=== PATIENT | female | born 2000 | race Two or more races ===

== ENCOUNTER 2024-05-10 16:53 | Emergency (ER) | payer MEDICAID, SELFPAY ==
[2024-05-10 17:38] VITALS: BP 135/81; PULSE 91; RESP 19; TEMP 36.7; O2SAT 99; BMI 40.3
--- NOTE | 2024-05-10 17:48 | XR_ITS ---
Examination: CT brain head without contrast. 2-D sagittal coronal reconstructions Date and time of exam:May 10, 2024 1754 hrs. Indications: Head pain with difficulty swallowing onset today CTDI: vol (mGy):79.5 DLP: (mGycm):1459 Technique: Multiple CT axial sections of the brain have been obtained, 5 mm slice thickness. Contrast has not been administered. 2-D sagittal, coronal reconstructions have been obtained Low dose protocols were performed. One or more of the following dose reduction techniques were used; automated exposure control, adjustment of the mA and/or KV according to patient size, use of iterative reconstruction technique. Findings: No significant ventricular enlargement. Intra-axial or extra-axial hemorrhage density is not seen. No mass effect or midline shift Basal cisterns are not remarkable. Fourth ventricle is midline. Cranial vault intact. Impression: Negative for acute hemorrhage, mass effect or midline shift Advise clinical correlation and follow-up accordingly
--- NOTE | 2024-05-10 17:48 | PD.EDRME ---
Rapid Medical Screening Exam RME Arrival date/time: 05/10/24 16:53 24-year-old female presents emergency department with complaints of headache, nausea that began yesterday. I have greeted and performed a focused initial assessment of this patient. Initial appropriate labs ordered at this time. A comprehensive ED assessment and evaluation of the patient and analysis of all test and completion of medical decision making process will be conducted by additional ED provider. Chief Complaint: Headache Time Seen by Provider: 05/10/24 17:48 Vital signs: Vital Signs Temperature 98.1 F 05/10/24 17:38 Pulse Rate 91 05/10/24 17:38 Respiratory Rate 19 05/10/24 17:38 Blood Pressure 135/81 H 05/10/24 17:38 Pulse Oximetry (%) 99 05/10/24 17:38 Oxygen Delivery Method Room Air 05/10/24 17:38
[2024-05-10] MEDS: IBUPROFEN TAB 400 MG TABLET 800 MG PO (18:25)
[2024-05-10 18:40] LABS: Basophils # (Auto) 0.1 Thou/mm3 (0.0-0.2); Basophils % (Auto) 1 % (0-2.5); Eosinophils # (Auto) 0.2 Thou/mm3 (0.0-0.5); Eosinophils % (Auto) 3 % (0-10); Hematocrit 39.8 % (36.0-46.0); Hemoglobin 13.8 g/dL (12.0-16.0); Immature Granulocytes % (Auto) 0 % (0-0); Immature Granulocytes Auto 0.02 Thou/mm3 (0.00-0.00); Lymphocytes # (Auto) 2.5 Thou/mm3 (1.0-4.8); Lymphocytes % (Auto) 30 % (10-50); Mean Corpuscular HGB Conc 34.7 g/dl (31.0-37.0); Mean Corpuscular Hemoglobin 29.7 pg (25.0-35.0); Mean Corpuscular Volume 86 fL (80-100); Monocytes # (Auto) 0.6 Thou/mm3 (0.0-0.8); Monocytes % (Auto) 7 % (0-12); Neutrophils % (Auto) 60 % (37-80); Nucleated Red Blood Cell % 0 /100 WBC (0); Platelet Count 369 Thou/mm3 (140-440); RDW Standard Deviation 38.8 fL (36.4-46.3); Red Blood Count 4.64 Miln/mm3 (4.00-5.20); White Blood Count 8.3 Thou/mm3 (3.6-11.0)
[2024-05-10 18:41] LABS: HCG Qualitative,Urine Negative
[2024-05-10 18:45] LABS: Alanine Aminotransferase 36 U/L (10-49); Albumin, Serum 4.5 gm/dL (3.5-5.0); Albumin/Globulin Ratio 1.5 (1.2-2.2); Alkaline Phosphatase 88 U/L (46-116); Anion Gap 5 (7-16); Aspartate Amino Transferase 17 U/L (0-34); BUN/Creatinine Ratio 10 Ratio (12-20); Bilirubin,Total 1.9 mg/dL (0.3-1.2); Blood Urea Nitrogen 8 mg/dL (9-23); Calcium 9.7 mg/dL (8.3-10.6); Calcium (Corrected) 9.7 mg/dL (8.5-10.1); Carbon Dioxide 25.9 mMol/L (20.0-31.0); Chloride 106 mMol/L (98-107); Creatinine (Component) 0.8 mg/dL (0.6-1.3); Estimated Creatinine Clearance 139.7 mL/min (>60); Globulin 3.1 gm/dL (2.3-3.5); Glucose 99 mg/dL (74-106); Osmolality,Calculated 272 (275-295); Potassium 3.6 mMol/L (3.4-5.1); Sodium 137 mMol/L (136-145); Total Protein 7.6 gm/dL (5.7-8.2); eGFR > 60 See Note
[2024-05-10 22:15] VITALS: BP 138/89; PULSE 61; RESP 18; TEMP 36.7; O2SAT 99
--- NOTE | 2024-05-10 22:45 | PD.EDHA ---
ED Headache RME/HPI General Chief Complaint: Headache Stated Complaint: HEAD AND LEFT ARM PAIN/CRAMPING W/DIFFICULT SWALLO Time Seen by Provider: 05/10/24 17:48 Arrival date/time: 05/10/24 16:53 This is a 24-year-old female with complaints of headache, left arm pain and cramping and feels like she sometimes has difficulty swallowing. Patient denies any throat swelling. Patient denies feeling that there is something stuck in her throat. Patient has a history of anxiety and depression. Patient reports that she lives alone and has been having more anxiety lately. Patient states she was placed on a medication called Latuda and she does not feel like it is helping her. Patient denies any SI HI. RME / HPI RME / HPI Narrative: 05/10/24 16:53 24-year-old female presents emergency department with complaints of headache, nausea that began yesterday. I have greeted and performed a focused initial assessment of this patient. Initial appropriate labs ordered at this time. A comprehensive ED assessment and evaluation of the patient and analysis of all test and completion of medical decision making process will be conducted by additional ED provider. Related Data Previous Rx's ?Medication ?Instructions ?Recorded IBU 800 mg tablet (ibuprofen) 800 mg PO Q6H PRN pain #30 tabs 03/30/24 baclofen 10 mg tablet 10 mg PO QDAY #20 tabs 03/30/24 Allergies Allergy/AdvReac Type Severity Reaction Status Date / Time No Known Allergies Allergy Verified 05/10/24 16:55 Review of Systems Review of Systems Systems Reviewed: All systems reviewed, normal except as documented Past Medical History Past Medical History Comments PMH COMMENT: anxiety and depressiom ED Exam General General appearance: Present alert and in no apparent distress Head Head exam: Present atraumatic Eye Eye exam: Present normal appearance, PERRL and EOMI ENT ENT exam: Present normal exam, normal oropharynx and mucous membranes moist Neck Neck exam: Present normal inspection, full ROM and trachea midline Chest Chest inspection: Present normal inspection and symmetric chest wall rise Respiratory Respiratory exam: Present normal lung sounds bilaterally Cardiovascular Cardiovascular exam: Present regular rate, normal rhythm and normal heart sounds Abdominal Exam Abdominal exam: Present soft Extremities Exam Extremities exam: Present normal inspection and full ROM Back Exam Back exam: Present normal inspection and full ROM Neurological Exam Neurological exam: Present alert and oriented X3 Psychiatric Psychiatric exam: Present normal affect and normal mood Skin Skin exam: Present warm, dry, intact and normal color Course Quality Measures none Orders Category Date Time Status CT head/brain wo con Stat Exams 05/10/24 17:48 Completed CBC Stat Lab 05/10/24 18:07 Completed CMP [Comprehensive Metabolic Panel] Stat Lab 05/10/24 18:07 Completed HCG Qualitative,Urine Stat Lab 05/10/24 18:22 Completed Acetaminophen Tab [Tylenol ES Tab] Med 05/10/24 22:46 Discontinued 1,000 mg PO X1 ONE Ibuprofen Tab [Motrin Tab] Med 05/10/24 17:48 Discontinued 800 mg PO X1 ONE Vital Signs Vital signs: Vital Signs Temperature 98.1 F 05/10/24 17:38 Pulse Rate 91 05/10/24 17:38 Respiratory Rate 19 05/10/24 17:38 Blood Pressure 135/81 H 05/10/24 17:38 Pulse Oximetry (%) 99 05/10/24 17:38 Oxygen Delivery Method Room Air 05/10/24 17:38 Headache MDM Narrative MDM Narrative:: his is a 24-year-old female with complaints of headache, left arm pain and cramping and feels like she sometimes has difficulty swallowing. Patient denies any throat swelling. Patient denies feeling that there is something stuck in her throat. Patient has a history of anxiety and depression. Patient reports that she lives alone and has been having more anxiety lately. Patient states she was placed on a medication called Latuda and she does not feel like it is helping her. Patient denies any SI HI. CT head: Findings: No significant ventricular enlargement. Intra-axial or extra-axial hemorrhage density is not seen. No mass effect or midline shift Basal cisterns are not remarkable. Fourth ventricle is midline. Cranial vault intact. Impression: Negative for acute hemorrhage, mass effect or midline shift Advise clinical correlation and follow-up accordingly Labs unremarkable. HCG negative. Patient given tylenol and ibuprofen for pain. Patient data External records reviewed:: [facility] previous records Clinical information provided by:: patient Social determinants that could affect healthcare access:: mental health Patient has the following chronic illnesses:: none How is presenting disease/condition affected by chronic disease/condition?: exacerbated by Evaluation data The following diagnostics were reviewed and interpreted by me:: lab results Lab and/or radiology exams considered but not ordered:: none Interpretation Summary: see note Medications / Prescriptions Medications or Prescriptions considered but not ordered:: none Medication administrations:: Medication Administration History Discontinued Medications Acetaminophen (Acetaminophen 500 Mg Tablet) 1,000 mg PO X1 ONE Stop: 05/10/24 22:47 Last Admin: 05/10/24 22:53 Dose: 1,000 mg Documented By: SUZI Ibuprofen (Ibuprofen Tab 400 Mg Tablet) 800 mg PO X1 ONE Stop: 05/10/24 17:49 Last Admin: 05/10/24 18:25 Dose: 800 mg Documented By: MP see [facility] Consultations Consultation(s) initiated? (list below): No Diagnosis Differential diagnosis headache: migraine, tension headache, subarachnoid hemorrhage, sinusitis and other (anxiety) Most likely diagnosis given after review of the tests above:: anxiety, tension headche Admission Indicated Admission indicated?: not indicated Admission Request Was there a request for admission?: No Disposition Plan Disposition Plan: Discharge Discharge Attestation Discharge Attestation: The patient and all family members were given an opportunity to ask questions and understood the discharge instructions. Discharge instructions specifically effects, indications for sooner follow up or return to the emergency department, and the expected course of current diagnosis. Patient condition: Stable Discharge Plan Plan Patient Disposition: HOME (Self Care) Patient condition on transfer: Stable Prescriptions/Referrals Prescriptions/Med Rec: No Action baclofen 10 mg tablet 10 mg PO QDAY Qty: 20 0RF ibuprofen [IBU] 800 mg tablet 800 mg PO Q6H PRN (Reason: pain) Qty: 30 0RF Referrals: Janna Pierson PA-C [Primary Care Provider] - In 1 week Problem List Clinical Impression: Headache, Anxiety Patient/Caregiver Discharge Instructions Discharge Activity: activity as tolerated Education Materials: Self-Care for Headaches, ED Anxiety Reaction Additional Instructions: Please follow-up with primary provider in 1 to 2 days. Come back to the emergency room if symptoms change or worsen. Print Language: Italian Stand Alone Forms: [employer]ma[employer] Award Info., Patient Portal Info Letter ILENE/SHERIF Supervising Physician ILENE/SHERIF Supervising Physician: joseph
[2024-05-10] MEDS: ACETAMINOPHEN 500 MG TABLET 1000 MG PO (22:53)
== END 2024-05-10 22:56 | disposition home or self-care (01) ==
PROVIDERS: Nurse Practitioner Primary Care; Emergency Provider Emergency Medicine; PCP Physician Assistant
DX: R51.9 Headache, unspecified (principal); F41.9 Anxiety disorder, unspecified; F32.A Depression, unspecified; M79.602 Pain in left arm
CPT/HCPCS: 36415; 70450; 80053; 81025; 85025; 99284; A9270

== ENCOUNTER 2024-05-31 12:13 | Emergency (ER) | payer MEDICAID, SELFPAY ==
[2024-05-31 12:20] VITALS: BP 120/83; PULSE 63; RESP 18; TEMP 36.8; O2SAT 94
[2024-05-31 12:28] VITALS: BP 125/80; PULSE 78; RESP 20; TEMP 37; O2SAT 96; BMI 47.1
--- NOTE | 2024-05-31 12:35 | EKG_ITS ---
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
--- NOTE | 2024-05-31 12:35 | XR_ITS ---
Examination: PA lateral chest 2 views TECHNIQUE: Upright PA lateral chest 2 views Exam date and time: May 31, 2024 1259 hours Comparison March 30, 2024 INDICATIONS: Left shoulder pain with cardiac palpitations beginning 10 days ago. FINDINGS: Poor inspiratory effort Normal heart size No lobar pneumonia or pulmonary edema IMPRESSION: Poor inspiratory effort chest
[2024-05-31 13:03] LABS: Basophils % (Auto) 0 % (0-2.5); Eosinophils # (Auto) 0.2 Thou/mm3 (0.0-0.5); Eosinophils % (Auto) 2 % (0-10); Hematocrit 39.4 % (36.0-46.0); Hemoglobin 13.5 g/dL (12.0-16.0); Immature Granulocytes % (Auto) 0 % (0-0); Immature Granulocytes Auto 0.01 Thou/mm3 (0.00-0.00); Lymphocytes # (Auto) 1.9 Thou/mm3 (1.0-4.8); Lymphocytes % (Auto) 26 % (10-50); Mean Corpuscular HGB Conc 34.3 g/dl (31.0-37.0); Mean Corpuscular Hemoglobin 30.1 pg (25.0-35.0); Mean Corpuscular Volume 88 fL (80-100); Monocytes # (Auto) 0.5 Thou/mm3 (0.0-0.8); Monocytes % (Auto) 7 % (0-12); Neutrophils # (Auto) 4.8 Thou/mm3 (1.8-7.7); Neutrophils % (Auto) 65 % (37-80); Nucleated Red Blood Cell % 0 /100 WBC (0); Platelet Count 323 Thou/mm3 (140-440); RDW Standard Deviation 40.3 fL (36.4-46.3); Red Blood Count 4.49 Miln/mm3 (4.00-5.20); White Blood Count 7.5 Thou/mm3 (3.6-11.0)
[2024-05-31 13:20] LABS: Alanine Aminotransferase 28 U/L (10-49); Albumin, Serum 4.5 gm/dL (3.5-5.0); Albumin/Globulin Ratio 1.6 (1.2-2.2); Alkaline Phosphatase 83 U/L (46-116); Anion Gap 7 (7-16); Aspartate Amino Transferase 10 U/L (0-34); BUN/Creatinine Ratio 13 Ratio (12-20); Bilirubin,Total 1.6 mg/dL (0.3-1.2); Blood Urea Nitrogen 9 mg/dL (9-23); Calcium 9.5 mg/dL (8.3-10.6); Calcium (Corrected) 9.5 mg/dL (8.5-10.1); Carbon Dioxide 26.9 mMol/L (20.0-31.0); Chloride 103 mMol/L (98-107); Creatinine (Component) 0.7 mg/dL (0.6-1.3); Estimated Creatinine Clearance 174.8 mL/min (>60); Globulin 2.8 gm/dL (2.3-3.5); Glucose 101 mg/dL (74-106); Osmolality,Calculated 272 (275-295); Sodium 137 mMol/L (136-145); Total Protein 7.3 gm/dL (5.7-8.2); Troponin I < 0.002 ng/mL (0.0-0.045); eGFR > 60 See Note
[2024-05-31 13:33] LABS: HCG,Qualitative Serum Negative
--- NOTE | 2024-05-31 14:36 | PD.EDADULT ---
ED General RME/HPI General Chief complaint: Arrhythmia/Palpitations Stated complaint: left shoulder/arm/ palpitationsx 10 days Time Seen by Provider: 05/31/24 12:25 Arrival date/time: 05/31/24 12:13 24-year-old female presents emergency department today complaints of arm pain, shoulder pain, neck pain worse with movement which radiates to the chest patient also reports palpitations patient report symptoms ongoing for approximately 2 weeks Limitations: no limitations Related Data Previous Rx's ?Medication ?Instructions ?Recorded IBU 800 mg tablet (ibuprofen) 800 mg PO Q6H PRN pain #30 tabs 03/30/24 baclofen 10 mg tablet 10 mg PO QDAY #20 tabs 03/30/24 Allergies Allergy/AdvReac Type Severity Reaction Status Date / Time No Known Allergies Allergy Verified 05/31/24 12:14 Review of Systems Review of Systems Systems Reviewed: All systems reviewed, normal except as documented Constitutional Constitutional: Reports system reviewed and no additional complaints, except as documented, Denies fever(s) and Denies headache(s) Eyes Eyes: Reports system reviewed and no additional complaints, except as documented and Denies blurry vision ENT Ears, Nose, Mouth, and Throat: Reports system reviewed and no additional complaints, except as documented, Denies headache(s), Denies nasal congestion and Denies nasal discharge Cardiovascular Cardiovascular: Reports system reviewed and no additional complaints, except as documented, Denies chest pain and Denies dyspnea Respiratory Respiratory: Reports system reviewed and no additional complaints, except as documented, Denies chest congestion, Denies cough and Denies dyspnea Gastrointestinal Gastrointestinal: Reports system reviewed and no additional complaints, except as documented and Denies abdominal pain Integumentary/Breasts Skin/Breast: Reports system reviewed and no additional complaints, except as documented and Denies rash Neurologic Neurologic: Reports system reviewed and no additional complaints, except as documented, Reports as per HPI and Denies headache(s) Past Medical History Social History SMOKING STATUS: Never smoker ED Exam General Limitations: Present no limitations General appearance: Present alert and in no apparent distress Head Head exam: Present atraumatic Eye Eye exam: Present normal appearance, PERRL and EOMI ENT ENT exam: Present normal exam, normal oropharynx and mucous membranes moist Neck Neck exam: Present normal inspection, full ROM and trachea midline Chest Chest inspection: Present normal inspection and symmetric chest wall rise Respiratory Respiratory exam: Present normal lung sounds bilaterally Cardiovascular Cardiovascular exam: Present regular rate, normal rhythm and normal heart sounds; Absent bradycardia, tachycardia, irregular rhythm or JVD Abdominal Exam Abdominal exam: Present soft and normal bowel sounds Extremities Exam Extremities exam: Present normal inspection and full ROM Back Exam Back exam: Present normal inspection and full ROM Neurological Exam Neurological exam: Present alert, oriented X3 and CN II-XII intact Psychiatric Psychiatric exam: Present normal affect and normal mood Skin Skin exam: Present warm, dry, intact and normal color Course Quality Measures none Orders Category Date Time Status EKG (ED ONLY) *Do not use* NOW Care 05/31/24 12:35 Completed EKG (ED Only) Stat Exams 05/31/24 12:35 Draft XR chest 2V Stat Exams 05/31/24 12:35 Completed CBC Stat Lab 05/31/24 12:51 Completed Comprehensive Metabolic Panel Stat Lab 05/31/24 12:51 Completed HCG,Qualitative Serum Stat Lab 05/31/24 12:51 Completed Troponin I Stat Lab 05/31/24 12:51 Completed Vital Signs Vital signs: Vital Signs Temperature 98.2 F 05/31/24 12:20 Pulse Rate 63 05/31/24 12:20 Respiratory Rate 18 05/31/24 12:20 Blood Pressure 120/83 05/31/24 12:20 Pulse Oximetry (%) 94 L 05/31/24 12:20 Oxygen Delivery Method Room Air 05/31/24 12:20 O2 saturation 94% room air Procedures -ED EKG Interpretation #1: Date of EK05/31/24 Time of EK:47 Rate: 80 Interpretation: Interpreted by me EKG Impression: Normal sinus rhythm, No acute ST-T changes, No ectopy, No ischemic changes, Normal QRS and Normal intervals MDM Patient data External records reviewed:: None Clinical information provided by:: patient Social determinants that could affect healthcare access:: none Patient has the following chronic illnesses:: None How is presenting disease/condition affected by chronic disease/condition?: no chronic disease Evaluation data The following diagnostics were reviewed and interpreted by me:: lab results, radiology exam(s) and EKG tracing(s) Lab and/or radiology exams considered but not ordered:: Labs, radiology, EKG obtained Interpretation Summary: Reviewed by me Medications Medications considered but not ordered:: No meds Medication administrations:: No meds Consultations Consultation(s) initiated? (list below): No Diagnosis Differential Diagnosis ED Complaint MDM: URI, bronchitis, COVID-19, anxiety, chest pain Most likely diagnosis given after review of the tests above:: Anxiety Admission Indicated Admission indicated?: not indicated Explain why admission is indicated or not indicated:: No criteria Admission Request Was there a request for admission?: No Disposition Plan Disposition Plan: Discharge Discharge Attestation Discharge Attestation: The patient and all family members were given an opportunity to ask questions and understood the discharge instructions. Discharge instructions specifically effects, indications for sooner follow up or return to the emergency department, and the expected course of current diagnosis. Patient condition: Stable Medical Decision Making MDM Narrative MDM Narrative: 24-year-old female presents emergency department today complaints of arm pain, shoulder pain, neck pain worse with movement which radiates to the chest patient also reports palpitations patient report symptoms ongoing for approximately 2 weeks On exam patient well-appearing patient does not appear ill or toxic in no acute distress patient does appear to be anxious Lab work chest x-ray and EKG obtained No acute emergent findings noted EKG is normal chest x-ray normal troponin is normal Patient discharged home in no distress to follow-up with primary care doctor in the next 24 to 48 hours and for any worsening symptoms to return to the ER immediately Differential Diagnosis Differential Diagnosis: URI, bronchitis, COVID-19, anxiety, chest pain Medical Records Medical records reviewed: Yes I reviewed the patient's medical records. Lab Data Lab results reviewed: Yes I reviewed the patient's lab results. 05/31/24 12:51 05/31/24 12:51 Labs: Lab Results 05/31/24 Range/Units 12:51 WBC 7.5 (3.6-11.0) Thou/mm3 RBC 4.49 (4.00-5.20) Miln/mm3 Hgb 13.5 (12.0-16.0) g/dL Hct 39.4 (36.0-46.0) % MCV 88 (80-100) fL MCH 30.1 (25.0-35.0) pg MCHC 34.3 (31.0-37.0) g/dl RDW Std Deviation 40.3 (36.4-46.3) fL Plt Count 323 D (140-440) Thou/mm3 Neut % (Auto) 65 (37-80) % Lymph % (Auto) 26 (10-50) % [place] % (Auto) 7 (0-12) % Eos % (Auto) 2 (0-10) % Baso % (Auto) 0 (0-2.5) % Neut # (Auto) 4.8 (1.8-7.7) Thou/mm3 Lymph # (Auto) 1.9 (1.0-4.8) Thou/mm3 [place] # (Auto) 0.5 (0.0-0.8) Thou/mm3 Eos # (Auto) 0.2 (0.0-0.5) Thou/mm3 Baso # (Auto) 0.0 (0.0-0.2) Thou/mm3 Immature Gran # (Auto) 0.01 H (0.00-0.00) Thou/mm3 Absolute Nucleated RBC 0.00 (0.00-0.00) Thou/mm3 Immature Gran % 0 (0-0) % Nucleated RBC % 0 (0) /100 WBC Sodium 137 (136-145) mMol/L Potassium 4.0 (3.4-5.1) mMol/L Chloride 103 (98-107) mMol/L Carbon Dioxide 26.9 (20.0-31.0) mMol/L Anion Gap 7 (7-16) BUN 9 (9-23) mg/dL Creatinine 0.7 (0.6-1.3) mg/dL Estim Creat Clear Calc 174.8 (>60) mL/min eGFR > 60 (60 - ) See Note BUN/Creatinine Ratio 13 (12-20) Ratio Glucose 101 (74-106) mg/dL Calculated Osmolality 272 L (275-295) Calcium 9.5 (8.3-10.6) mg/dL Corrected Calcium 9.5 (8.5-10.1) mg/dL Total Bilirubin 1.6 H (0.3-1.2) mg/dL AST 10 (0-34) U/L ALT 28 (10-49) U/L Alkaline Phosphatase 83 (46-116) U/L Troponin I < 0.002 (0.0-0.045) ng/mL Total Protein 7.3 (5.7-8.2) gm/dL Albumin 4.5 (3.5-5.0) gm/dL Globulin 2.8 (2.3-3.5) gm/dL Albumin/Globulin Ratio 1.6 (1.2-2.2) HCG, Qual Negative Radiology Data Radiology results reviewed: Yes I reviewed the patient's radiology results. Discharge Plan Plan Patient Disposition: HOME (Self Care) Disposition Comment: Stable Prescriptions/Referrals Prescriptions/Med Rec: No Action baclofen 10 mg tablet 10 mg PO QDAY Qty: 20 0RF ibuprofen [IBU] 800 mg tablet 800 mg PO Q6H PRN (Reason: pain) Qty: 30 0RF Referrals: Teto Reno MD [Primary Care Provider] - 06/03/24 Problem List Clinical Impression: Chest wall pain, Anxiety about health Patient/Caregiver Discharge Instructions Education Materials: ED Chest Pain, Noncardiac Additional Instructions: Please follow up with your primary care doctor in the next 24-48hrs for any worsening symptoms return here immediately Print Language: Northern Irish Stand Alone Forms: Almaz Award Info., Patient Portal Info Letter PA/AGENCY MANAGER Supervising Physician PA/AGENCY MANAGER Supervising Physician: Dr. crenshaw
== END 2024-05-31 19:09 | disposition home or self-care (01) ==
PROVIDERS: Nurse Practitioner Primary Care; Emergency Provider Emergency Medicine; PCP Family Medicine
DX: F41.9 Anxiety disorder, unspecified (principal); R07.89 Other chest pain; M25.512 Pain in left shoulder; R00.2 Palpitations
CPT/HCPCS: 36415; 71046; 80053; 84484; 84703; 85025; 93005; 99283

== ENCOUNTER 2024-07-05 17:33 | Emergency (ER) | payer MEDICAID, SELFPAY ==
[2024-07-05 17:35] VITALS: BMI 47.1
--- NOTE | 2024-07-05 17:39 | EKG_ITS ---
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
[2024-07-05 18:08] VITALS: BP 146/101; PULSE 68; RESP 19; TEMP 37.1; O2SAT 98
--- NOTE | 2024-07-05 18:09 | XR_ITS ---
Examination: PA lateral chest 2 views TECHNIQUE: Upright PA lateral chest 2 views Exam date and time: July 05, 2024 1817 hours Comparison May 31, 2024 INDICATIONS: Onset lightheadedness dizziness and weakness today FINDINGS: Normal heart size The lungs are clear. The osseous structures are intact IMPRESSION: No active disease
--- NOTE | 2024-07-05 18:09 | PD.EDRME ---
Rapid Medical Screening Exam E Arrival date/time: 07/05/24 17:33 24-year-old female presents emergency department complaint of chest pain while on treadmill today Chief Complaint: Chest Pain Vital signs: Vital Signs Temperature 98.8 F 07/05/24 18:08 Pulse Rate 68 07/05/24 18:08 Respiratory Rate 19 07/05/24 18:08 Blood Pressure 146/101 H 07/05/24 18:08 Pulse Oximetry (%) 98 07/05/24 18:08 Oxygen Delivery Method Room Air 07/05/24 18:08
[2024-07-05 18:43] LABS: Basophils % (Auto) 0 % (0-2.5); Eosinophils # (Auto) 0.2 Thou/mm3 (0.0-0.5); Eosinophils % (Auto) 3 % (0-10); Hematocrit 38.8 % (36.0-46.0); Hemoglobin 13.3 g/dL (12.0-16.0); Immature Granulocytes % (Auto) 0 % (0-0); Immature Granulocytes Auto 0.02 Thou/mm3 (0.00-0.00); Lymphocytes # (Auto) 2.9 Thou/mm3 (1.0-4.8); Lymphocytes % (Auto) 38 % (10-50); Mean Corpuscular HGB Conc 34.3 g/dl (31.0-37.0); Mean Corpuscular Hemoglobin 30.3 pg (25.0-35.0); Mean Corpuscular Volume 88 fL (80-100); Monocytes # (Auto) 0.5 Thou/mm3 (0.0-0.8); Monocytes % (Auto) 7 % (0-12); Neutrophils # (Auto) 3.9 Thou/mm3 (1.8-7.7); Neutrophils % (Auto) 51 % (37-80); Nucleated Red Blood Cell % 0 /100 WBC (0); Platelet Count 327 Thou/mm3 (140-440); Red Blood Count 4.39 Miln/mm3 (4.00-5.20); White Blood Count 7.5 Thou/mm3 (3.6-11.0)
[2024-07-05 18:56] LABS: Alanine Aminotransferase 26 U/L (10-49); Albumin, Serum 4.4 gm/dL (3.5-5.0); Albumin/Globulin Ratio 1.5 (1.2-2.2); Alkaline Phosphatase 95 U/L (46-116); Anion Gap 7 (7-16); Aspartate Amino Transferase < 8 U/L (0-34); BUN/Creatinine Ratio 13 Ratio (12-20); Bilirubin,Total 1.6 mg/dL (0.3-1.2); Blood Urea Nitrogen 9 mg/dL (9-23); Calcium 9.3 mg/dL (8.3-10.6); Calcium (Corrected) 9.3 mg/dL (8.5-10.1); Carbon Dioxide 26.6 mMol/L (20.0-31.0); Chloride 104 mMol/L (98-107); Creatinine (Component) 0.7 mg/dL (0.6-1.3); Estimated Creatinine Clearance 174.7 mL/min (>60); Glucose 86 mg/dL (74-106); Osmolality,Calculated 273 (275-295); Potassium 3.7 mMol/L (3.4-5.1); Sodium 138 mMol/L (136-145); Total Protein 7.4 gm/dL (5.7-8.2); Troponin I < 0.002 ng/mL (0.0-0.045); eGFR > 60 See Note
[2024-07-05 19:00] LABS: HCG,Qualitative Serum Negative
--- NOTE | 2024-07-05 19:59 | EDNOTE_ITS ---
ED Chest Pain RME/HPI General Chief Complaint: Chest Pain Stated Complaint: LEFT SIDE CXP WHILE WORKING OUT,WORSE BREATHING Time Seen by Provider: 07/05/24 18:13 Source: patient, RN notes reviewed and old records reviewed Arrival date/time: 07/05/24 17:33 Mode of arrival: ambulatory Limitations: no limitations RME / HPI RME / HPI narrative: 24yof presents to ED for left chest wall pain that initiated today while on the treadmill, pain worsens with movement and palpation. Patient reports she has been working out and going to the gym daily. No fever, recent cough, shortness of breath, nausea/vomiting, dizziness or syncope reported. No medications or treatments since symptom onset. Related Data Previous Rx's ?Medication ?Instructions ?Recorded IBU 800 mg tablet (ibuprofen) 800 mg PO Q6H PRN pain #30 tabs 03/30/24 baclofen 10 mg tablet 10 mg PO QDAY #20 tabs 03/30/24 ibuprofen 600 mg tablet 600 mg PO Q6H PRN pain #30 tabs 07/05/24 methocarbamol 500 mg tablet 1,000 mg (2 x 500 mg) PO Q8H PRN 07/05/24 pain #30 tabs Allergies Allergy/AdvReac Type Severity Reaction Status Date / Time No Known Allergies Allergy Verified 07/05/24 17:37 Review of Systems Review of Systems Systems Reviewed: All systems reviewed, normal except as documented Constitutional Constitutional: Denies chills and Denies fever(s) Cardiovascular Cardiovascular: Reports chest pain (chest wall), Denies dyspnea, Denies lightheadedness, Denies palpitations and Denies syncope Respiratory Respiratory: Denies cough and Denies dyspnea Gastrointestinal Gastrointestinal: Denies nausea and Denies vomiting Neurologic Neurologic: Denies syncope Endocrine Endocrine: Denies palpitations Past Medical History Past Medical History GASTROINTESTINAL: Positive Obesity Surgical History OTHER SURGICAL HX: Denies past surgical history Social History SMOKING STATUS: Never smoker SUBSTANCE USE: does not use ALCOHOL: Never ED Exam General Limitations: Present no limitations General appearance: Present alert, in no apparent distress and obese Head Head exam: Present atraumatic and normocephalic Eye Eye exam: Present normal appearance, PERRL and EOMI ENT ENT exam: Present normal exam and mucous membranes moist Neck Neck exam: Present normal inspection and full ROM Chest Chest inspection: Present symmetric chest wall rise and tenderness (left chest wall); Absent rash Respiratory Respiratory exam: Present normal lung sounds bilaterally; Absent respiratory distress Cardiovascular Cardiovascular exam: Present regular rate and normal rhythm Extremities Exam Extremities exam: Present normal inspection and full ROM Neurological Exam Neurological exam: Present alert and oriented X3 Psychiatric Psychiatric exam: Present normal affect and normal mood Skin Skin exam: Present warm, dry, intact and normal color Course Quality Measures none Orders Category Date Time Status EKG (ED ONLY) *Do not use* NOW Care 07/05/24 17:39 Completed EKG (ED Only) Stat Exams 07/05/24 17:39 Draft XR chest 2V Stat Exams 07/05/24 18:09 Completed CBC Stat Lab 07/05/24 18:16 Completed Comprehensive Metabolic Panel Stat Lab 07/05/24 18:16 Completed HCG,Qualitative Serum Stat Lab 07/05/24 18:16 Completed Troponin I Stat Lab 07/05/24 18:16 Completed Acetaminophen Tab [Tylenol ES Tab] Med 07/05/24 20:26 Discontinued 1,000 mg PO X1 ONE Ibuprofen Tab [Motrin Tab] Med 07/05/24 20:26 Discontinued 600 mg PO X1 ONE Vital Signs Vital signs: Vital Signs Temperature 98.8 F 07/05/24 18:08 Pulse Rate 68 07/05/24 18:08 Respiratory Rate 19 07/05/24 18:08 Blood Pressure 146/101 H 07/05/24 18:08 Pulse Oximetry (%) 98 07/05/24 18:08 Oxygen Delivery Method Room Air 07/05/24 18:08 Procedures -ED EKG Interpretation #1: Date of EK07/05/24 Rate: 67 Interpretation: Interpreted by me EKG Impression: Normal sinus rhythm, No acute ST-T changes, No ectopy, No ischemic changes, Normal QRS, Normal intervals and Normal axis Chest Pain MDM Narrative MDM Narrative:: 24yof presents to ED for left chest wall pain that initiated today while on the treadmill, pain worsens with movement and palpation. Patient reports she has been working out and going to the gym daily. No fever, recent cough, shortness of breath, nausea/vomiting, dizziness or syncope reported. No medications or treatments since symptom onset. ED workup reassuring. Suspect MSK etiology of chest pain. Heart score not applicable. Encouraged rest, ice application, Motrin/Tylenol prn pain. Stable for discharge, RTED precautions given Patient data External records reviewed:: [facility] previous records (05/31/2024 ED visit for anxiety) Clinical information provided by:: patient Social determinants that could affect healthcare access:: other (specify) (Poor access to healthcare) Patient has the following chronic illnesses:: Obesity How is presenting disease/condition affected by chronic disease/condition?: exacerbated by Evaluation data The following diagnostics were reviewed and interpreted by me:: lab results, radiology exam(s) and EKG tracing(s) Lab and/or radiology exams considered but not ordered:: None Interpretation Summary: Negative Trop CXR: No acute process per my read EKG normal sinus Medications / Prescriptions Medications or Prescriptions considered but not ordered:: None Medication administrations:: Medication Administration History Discontinued Medications Acetaminophen (Acetaminophen 500 Mg Tablet) 1,000 mg PO X1 ONE Stop: 07/05/24 20:27 Last Admin: 07/05/24 20:29 Dose: 1,000 mg Documented By: JAMIN Ibuprofen (Ibuprofen Tab 600 Mg Tablet) 600 mg PO X1 ONE Stop: 07/05/24 20:27 Last Admin: 07/05/24 20:29 Dose: 600 mg Documented By: OA Above medications administered in ED Consultations Consultation(s) initiated? (list below): No Diagnosis Chest Pain Differential Diagnosis: fracture of rib, pneumothorax, stable angina, st elevation myocardial infarction, costochondritis and chest pain Most likely diagnosis given after review of the tests above:: Musculoskeletal chest pain Admission Indicated Admission indicated?: not indicated Admission Request Was there a request for admission?: No Disposition Plan Disposition Plan: Discharge Discharge Attestation Discharge Attestation: The patient and all family members were given an opportunity to ask questions and understood the discharge instructions. Discharge instructions specifically effects, indications for sooner follow up or return to the emergency department, and the expected course of current diagnosis. Patient condition: Stable Discharge Plan Plan Patient Disposition: HOME (Self Care) Patient condition on transfer: Stable Prescriptions/Referrals Prescriptions/Med Rec: New ibuprofen 600 mg tablet 600 mg PO Q6H PRN (Reason: pain) Qty: 30 0RF methocarbamol 500 mg tablet 1,000 mg PO Q8H PRN (Reason: pain) Qty: 30 0RF No Action baclofen 10 mg tablet 10 mg PO QDAY Qty: 20 0RF ibuprofen [IBU] 800 mg tablet 800 mg PO Q6H PRN (Reason: pain) Qty: 30 0RF Referrals: No Primary/Family,Physician [Primary Care Provider] - In 1 week Problem List Clinical Impression: Left-sided chest wall pain Patient/Caregiver Discharge Instructions Education Materials: ED Chest Wall Pain, Costochondritis Additional Instructions: Ibuprofen and Tylenol can be taken as needed for pain. Ice application may also help with inflammation and pain relief. Print Language: Romanian Stand Alone Forms: [employer] Award Info., Patient Portal Info Letter PA/TOBACCO BALER Supervising Physician PA/TOBACCO BALER Supervising Physician: Eugenia
[2024-07-05] MEDS: ACETAMINOPHEN 500 MG TABLET 1000 MG PO (20:29)
[2024-07-05] MEDS: IBUPROFEN TAB 600 MG TABLET PO (20:29)
== END 2024-07-05 20:40 | disposition home or self-care (01) ==
PROVIDERS: Nurse Practitioner Primary Care; Emergency Provider Emergency Medicine
DX: R07.89 Other chest pain (principal); R42 Dizziness and giddiness; R53.1 Weakness
CPT/HCPCS: 36415; 71046; 80053; 84484; 84703; 85025; 93005; 99283; A9270

== ENCOUNTER 2024-07-27 17:16 | Emergency (ER) | payer MEDICAID, SELFPAY ==
[2024-07-27 17:16] VITALS: BMI 45.5
[2024-07-27 17:21] VITALS: BMI 44.1
[2024-07-27 17:59] VITALS: BP 132/88; PULSE 61; RESP 16; TEMP 37; O2SAT 98
--- NOTE | 2024-07-27 18:52 | XR_ITS ---
Examination: Cervical spine 4 views Technique: AP lateral swimmer's lateral coned AP odontoid cervical spine 4 views Exam date and time: July 27, 2024 at 1935 hrs. Indications: Neck pain today Findings: Straightening normal cervical lordosis No cervical fracture Intact odontoid No cervical disc narrowing Impression: No cervical fracture
--- NOTE | 2024-07-27 18:53 | PD.EDRME ---
Rapid Medical Screening Exam RME Arrival date/time: 07/27/24 17:16 24-year-old female presents emergency department today complaint of neck pain and headache after running on the treadmill yesterday Chief Complaint: Neck Pain/Injury Vital signs: Vital Signs Temperature 98.6 F 07/27/24 17:59 Pulse Rate 61 07/27/24 17:59 Respiratory Rate 16 07/27/24 17:59 Blood Pressure 132/88 H 07/27/24 17:59 Pulse Oximetry (%) 98 07/27/24 17:59 Oxygen Delivery Method Room Air 07/27/24 17:59
[2024-07-27] MEDS: ACETAMINOPHEN 500 MG TABLET 1000 MG PO (19:24)
[2024-07-27] MEDS: CYCLObenzaPRINE 5 MG TABLET 10 MG PO (19:25)
--- NOTE | 2024-07-27 21:42 | PC.NURSE ---
PT CALLED FROM [facility] WITH NO ANSWER
== END 2024-07-27 23:54 | disposition left against medical advice (07) ==
LOC: SERX 20:36
PROVIDERS: Emergency Provider Emergency Medicine; PCP Family Medicine
DX: M54.2 Cervicalgia (principal); R51.9 Headache, unspecified; Z53.29 Procedure and treatment not carried out because of patient's decision for other reasons
CPT/HCPCS: 72040; 99283; A9270